=== PATIENT | male | born 1980 | race Caucasian/White ===

== ENCOUNTER → 2016-12-04 | Outpatient (CLI) | payer SELFPAY ==
--- NOTE | 2016-12-04 09:33 | RAD ---
EXAM DESCRIPTION: Elbow,Left 3 Views CLINICAL HISTORY: 36 years Male, PAIN IN LEFT ELBOW IMPRESSION: 3 views of the left elbow reveals no evidence of fracture or considerable degenerative change. No joint effusion. There is some thickening overlying the olecranon which may be compatible with olecranon bursitis if supported by clinical findings. Electronically signed by: Christian Peterson MD 12/04/2016 9:32 AM CDT
== END | disposition home or self-care (01) ==
LOC: RAD 08:35
PROVIDERS: ATTEND Orthopaedic Surgery
DX: M25.522 Pain in left elbow (principal)

== ENCOUNTER 2017-04-26 07:53 | Emergency (ER) | payer SELFPAY ==
--- NOTE | 2017-04-26 08:36 | RAD ---
EXAM DESCRIPTION: Chest,2 Views CLINICAL HISTORY: 36 years, Male, chest pain COMPARISON: FINDINGS: Adequate inspiration. No consolidation. Cardiac silhouette normal. IMPRESSION: Clear lungs and normal cardiac silhouette Electronically signed by: Cash Rojas MD 04/26/2017 8:35 AM CDT
[2017-04-26 08:38] VITALS: TEMP 97.9; O2SAT 100
[2017-04-26] MEDS ORDERED: ALUMINUM & MAGNESIUM HYDROXIDE 30 ML UD PO ONE (09:09)
[2017-04-26] MEDS ORDERED: POTASSIUM CHLORIDE ELIXIR 20 MEQ/15 ML UD PO ONE (09:09)
[2017-04-26] MEDS ORDERED: ONDANSETRON ODT 8 MG TAB SL ONE (09:10)
[2017-04-26 09:53] VITALS: BP 126/78
--- NOTE | 2017-04-26 10:03 | ED.PDOC ---
History of Present Illness - General Chief Complaint: Chest Pain/CT Stated Complaint: chest pain Time Seen by Provider: 04/26/17 08:16 Source: patient Exam Limitations: no limitations - History of Present Illness Initial Comments: he patient is a 36-year-old male presenting to the emergency room secondary to symptoms of mild chest discomfort and mild shortness of breath starting this morning primarily. There've been multiple family members have been ill over the last few days. He has had a mild cough. He does have some mild dyspnea on exertion. The chest discomfort is precordial. It is a little worse with movement. It is a little worse with taking a deep breath. It is a mild pressure in nature. He does not have any history of any cardiac disease. Initial vital signs are reassuring as is the EKG. No syncope or near-syncope. No definite fever but he suspects that he may have had one. No sore throat. Mild runny nose. Timing/Duration: 1-3 hours Severity: mild Improving Factors: nothing Worsening Factors: movement Associated Symptoms: chest pain, loss of appetite, malaise, shortness of breath Allergies/Adverse Reactions: Allergies NO KNOWN ALLERGY Allergy (Unverified 03/14/13 14:50) Home Medications: Ambulatory Orders BuPROPion XL [Wellbutrin XL] 150 mg PO DAILY 04/26/17 Diazepam [Valium] 10 mg PO TID PRN 04/26/17 Gabapentin 300 mg PO TID 04/26/17 Ondansetron [Zofran Odt] 4 mg PO Q4H PRN #10 tab 04/26/17 Tramadol HCl 50 mg PO Q6H 04/26/17 Review of Systems - Review of Systems Constitutional: States: malaise EENTM: States: nose congestion Respiratory: States: short of breath - mild Cardiology: States: chest pain Gastrointestinal/Abdominal: States: nausea - mild epigastric discomfort Genitourinary: States: no symptoms reported Musculoskeletal: States: see HPI - chronic problems Skin: States: no symptoms reported Neurological: States: see HPI - long-term issues Endocrine: States: no symptoms reported All other Systems: No Change from Baseline Past Medical History (General) - Patient Medical History Hx Seizures: No Hx Asthma: No Hx Congestive Heart Failure: No Hx Hypertension: No Surgical History: no surgical history Family Medical History - Family History Father Hx Family Stroke: Yes Physical Exam - Physical Exam General Appearance: Alert, Comfortable, No apparent distress Eye Exam: bilateral normal Ears, Nose, Throat: hearing grossly normal, normal pharynx, nasal congestion Neck: supple Respiratory: lungs clear, normal breath sounds, no respiratory distress, no accessory muscle use, other - mild anterior chest wall discomfort palpation Cardiovascular/Chest: normal peripheral pulses, regular rate, rhythm, no edema Peripheral Pulses: radial,right: 2+, radial,left: 2+, dorsalis pedis,right: 2+, dorsalis pedis,left: 2+ Gastrointestinal/Abdominal: soft, other - mild epigastric discomfort palpation Rectal Exam: deferred Back Exam: normal inspection, no CVA tenderness, no vertebral tenderness Extremity: normal range of motion, non-tender, normal inspection, no pedal edema , no calf tenderness, normal capillary refill Neurologic: registered nurse cardiovascular icu II-XII nml as tested, alert, oriented x 3 Skin Exam: normal color Comments: Vital Signs - 24 hr 04/26/17 04/26/17 04/26/17 07:55 08:20 08:50 Temperature 97.9 F Pulse Rate [ 90 73 67 right brachial] Respiratory 20 20 20 Rate Blood Pressure 134/89 130/87 123/79 [right brachial ] O2 Sat by Pulse 100 99 100 Oximetry 04/26/17 09:20 Temperature Pulse Rate [ 68 right brachial] Respiratory 20 Rate Blood Pressure 126/78 [right brachial ] O2 Sat by Pulse 100 Oximetry Progress - Progress Progress: 04/26/17 10:05 the patient is a 36-year-old male presenting secondary to mild chest discomfort and epigastric discomfort with associated shortness of breath of a short duration. The symptoms are most likely due to a viral syndrome as his family has had numerous symptoms over the last few days. Initial set of cardiac enzymes as well as EKG and chest x-ray are reassuring. The patient is unwilling to wait for a second set of confirmatory cardiac enzymes. I do recommend Tylenol 500 mg every 6 hours for the next 2 days to help reduce symptoms assuming this is from a viral source. He needs to keep well-hydrated. He was also given a dose of potassium here as his potassium was mildly low. This does need to be followed with his primary care doctor. ER warnings were given. - Results/Orders Results/Orders: Laboratory Tests 04/26/17 04/26/17 04/26/17 08:20 08:20 08:20 WBC 6.0 RBC 4.74 Hgb 15.1 Hct 45.3 MCV 95.5 H MCH 31.9 H MCHC 33.4 RDW 13.9 Plt Count 273 MPV 9.6 Absolute Neuts (auto) 2.80 Absolute Lymphs (auto) 2.50 Absolute Monos (auto) 0.30 Absolute Eos (auto) 0.30 Absolute Basos (auto) 0.00 Neutrophils % 46.9 Lymphocytes % 42.5 Monocytes % 5.8 Eosinophils % 4.2 Basophils % 0.6 PT 12.1 INR 1.070 PTT (SP) 31.5 Sodium 138 Potassium 3.4 L Chloride 106 Carbon Dioxide 23 Anion Gap 12.4 BUN 8 Creatinine 1.02 BUN/Creatinine Ratio 7.8 L Random Glucose 106 H Serum Osmolality 274.4 L Calcium 9.3 Total Bilirubin 0.3 AST 20 ALT 18 Alkaline Phosphatase 69 Creatine Kinase 114 CK-MB (CK-2) 0.8 CK-MB (CK-2) % Not Reportable Troponin I < 0.02 B-Natriuretic Peptide < 5.0 Serum Total Protein 7.7 Albumin 4.6 Globulin 3.1 Albumin/Globulin Ratio 1.5 Triglycerides Amylase 53 Lipase 41 04/26/17 08:20 WBC RBC Hgb Hct MCV MCH MCHC RDW Plt Count MPV Absolute Neuts (auto) Absolute Lymphs (auto) Absolute Monos (auto) Absolute Eos (auto) Absolute Basos (auto) Neutrophils % Lymphocytes % Monocytes % Eosinophils % Basophils % PT INR PTT (SP) Sodium Potassium Chloride Carbon Dioxide Anion Gap BUN Creatinine BUN/Creatinine Ratio Random Glucose Serum Osmolality Calcium Total Bilirubin AST ALT Alkaline Phosphatase Creatine Kinase CK-MB (CK-2) CK-MB (CK-2) % Troponin I B-Natriuretic Peptide Serum Total Protein Albumin Globulin Albumin/Globulin Ratio Triglycerides 169 H Amylase Lipase chest x-ray shows no acute abnormality. EKG shows normal sinus rhythm with no acute ST segment changes concerning for ischemia. Departure - Departure Clinical Impression: Chest pain, atypical Disposition: Left Against Medical Advice Condition: Fair Departure Forms: ED Discharge - Pt. Copy, Patient Portal Self Enrollment Instructions: DI for Atypical Chest Pain Diet: regular diet Activity: increase activity as tolerated Referrals: CHARLOTTE VALDIVIA [Primary Care Provider] - 1-5 Days Prescriptions: Ondansetron [Zofran Odt] 4 mg PO Q4H PRN #10 tab PRN Reason: Vomiting Home Medications: Ambulatory Orders BuPROPion XL [Wellbutrin XL] 150 mg PO DAILY 04/26/17 Diazepam [Valium] 10 mg PO TID PRN 04/26/17 Gabapentin 300 mg PO TID 04/26/17 Ondansetron [Zofran Odt] 4 mg PO Q4H PRN #10 tab 04/26/17 Tramadol HCl 50 mg PO Q6H 04/26/17 Additional Instructions: the patient is a 36-year-old male presenting secondary to mild chest discomfort and epigastric discomfort with associated shortness of breath of a short duration. The symptoms are most likely due to a viral syndrome as his family has had numerous symptoms over the last few days. Initial set of cardiac enzymes as well as EKG and chest x-ray are reassuring. The patient is unwilling to wait for a second set of confirmatory cardiac enzymes. I do recommend Tylenol 500 mg every 6 hours for the next 2 days to help reduce symptoms assuming this is from a viral source. He needs to keep well-hydrated. He was also given a dose of potassium here as his potassium was mildly low. This does need to be followed with his primary care doctor. ER warnings were given.
== END 2017-04-26 10:06 | disposition left against medical advice (07) ==
LOC: ER 07:53
DX: R07.89 Other chest pain (principal); Z82.3 Family history of stroke

== ENCOUNTER → 2020-06-10 | Outpatient (CLI) | payer OTHER | LOC: YCFC.O 10:19 | PROVIDERS: ATTEND Family Medicine | DX: R05 Cough (principal) ==